=== PATIENT | female | born 1960 | race Caucasian/White ===

== ENCOUNTER 2018-06-08 13:54 | Observation (INO) | payer OTHER, SELFPAY ==
[2018-06-08] VITALS (11 sets, daily range): BP systolic 90–157; BP diastolic 50–68; PULSE 59–68; RESP 12–18; TEMP 36.4–36.5; O2SAT 98–100; BMI 26.6
--- NOTE | 2018-06-08 13:56 | DI.RAD.S_ITS ---
PROCEDURE: XR CHEST 1V INDICATIONS: chest pain TECHNIQUE: One view of the chest was acquired. COMPARISON: None. FINDINGS: Surgical changes and devices: None. Lungs and pleura: Lungs are clear. No pleural effusions or pneumothorax. Mediastinum: Mediastinal contours appear normal. Heart size is normal. Bones and chest wall: No suspicious bony lesions. Overlying soft tissues appear unremarkable. IMPRESSION: No acute pulmonary process. Dictated by: Deanna Salgado M.D. on 06/08/2018 at 14:13 Approved by: Deanna Salgado M.D. on 06/08/2018 at 14:13
[2018-06-08 14:12] LABS: Add Manual Diff / Slide Review NO; Basophils Absolute Auto 0 /uL (0-100); Basophils Percent Auto 0.6 % (0-2); Eosinophils Absolute Auto 100 /uL (0-450); Eosinophils Percent Auto 3.4 % (2-4); Hematocrit 36.8 % (36-46); Hemoglobin 12.9 g/dL (12.0-16.0); Lymphocytes Absolute Auto 1500 /uL (1100-4500); Lymphocytes Percent Auto 39.9 % (25-40); Mean Corpuscular HGB Conc 35.1 % (30-36); Mean Corpuscular Hemoglobin 32.2 PG (26-34); Mean Corpuscular Volume 91.7 fL (80-100); Monocytes Absolute Auto 200 /uL (0-900); Monocytes Percent Auto 5.8 % (3-14); Neutrophils Absolute Auto 1800 /uL (1500-7000); Neutrophils Percent Auto 50.3 % (50-75); Platelet Count 238 X10^3/uL (150-400); Red Blood Cell Count 4.01 X10^6/uL (4.0-5.2); Red Cell Distribution Width 13.1 % (11.6-14.8); White Blood Cell Count 3.7 X10^3/uL (4.5-11.0)
[2018-06-08] MEDS: SODIUM CHLORIDE 0.9% 1,000 ML 150 ML IV (14:26)
[2018-06-08 14:31] LABS: Alanine Aminotransferase 32 IU/L (9-52); Albumin 4.4 g/dL (3.5-5.0); Albumin Globulin Ratio 1.6 (1.0-2.8); Alkaline Phosphatase 67 U/L (38-126); Aspartate Aminotransferase 19 IU/L (14-36); BUN Creatinine Ratio 14.3 (6-22); Bilirubin Total 0.7 mg/dL (0.2-1.3); Blood Urea Nitrogen 10 mg/dL (7-17); Calcium 9.3 mg/dL (8.4-10.2); Carbon Dioxide 26 mmol/L (22-32); Chloride 104 mmol/L (98-107); Creatine Kinase 46 U/L (30-135); Estimated Glomerular Filt Rate > 60.0 mL/min (>60); Globulin 2.7 g/dL (1.7-4.1); Glucose 99 mg/dL (70-100); HEMOLYSIS < 15 (0-50); Lipase 55 U/L (23-300); Potassium 3.8 mmol/L (3.4-5.1); Sodium 139 mmol/L (137-145); Total Protein 7.1 g/dL (6.3-8.2)
[2018-06-08 14:41] LABS: Troponin I < 0.012 ng/mL (0.01-0.034)
--- NOTE | 2018-06-08 14:53 | ED.CHESTPAIN ---
HPI - Chest Pain General Chief Complaint: Chest Pain Stated Complaint: chest pain Time Seen by Provider: 06/08/18 13:56 Source: patient Mode of arrival: EMS Limitations: no limitations History of Present Illness HPI narrative: 57-year-old female, former smoker with history of hypertension and hyperlipidemia presents by EMS for evaluation of chest pressure that started just before arrival. She was driving her car when she felt anterior chest pressure that radiated to her back. It came with associated shortness of breath and some nausea. She pulled to the side of the road and called EMS. They administered nitroglycerin which improved her pain. She states that it is a 7 or 8 in intensity and describes it as pressure like. She denies any recent travel, history of clot or history of the same. She does admit to increasing fatigue with exertion over the past few weeks MD complaint: chest pain Onset (ago): minute(s) Duration: constant Onset: during rest Pain location: substernal Severity: moderate Quality: aching and heaviness Pain radiation: back Relieving factors: nitroglycerin Exacerbating factors: nothing Associated symptoms: nausea and dyspnea Treatments prior to arrival chest pain: aspirin and nitroglycerin Related Data On Oral Contraceptives: No Home Medications Medication Instructions Recorded Confirmed cyclobenzaprine 1 tab PO PRN PRN 06/08/18 06/08/18 ibuprofen 1 dose PO PRN PRN 06/08/18 06/08/18 levothyroxine [Synthroid] 50 mcg PO DAILY 06/08/18 06/08/18 rizatriptan 5 mg PO PRN PRN 06/08/18 06/08/18 Allergies Allergy/AdvReac Type Severity Reaction Status Date / Time nortriptyline Allergy Verified 06/08/18 14:40 Review of Systems Constitutional Denies chills, Denies fever(s), Denies lethargy and Denies weakness Eyes Denies change in vision, Denies eye discharge, Denies irritation and Denies loss of vision ENT Ears, Nose, Mouth, and Throat: Denies change in voice, Denies neck pain and Denies sore throat Cardiovascular Reports chest pain, Denies irregular heart rhythm, Denies lightheadedness, Denies palpitations, Denies dyspnea, Denies dyspnea on exertion and Denies orthopnea Respiratory Denies cough, Denies dyspnea, Denies dyspnea on exertion and Denies wheezing Gastrointestinal Gastrointestinal: Denies abdominal pain, Denies change in bowel habits, Denies diarrhea, Denies nausea and Denies vomiting Genitourinary Denies hematuria, Denies flank pain, Denies urinary incontinence and Denies urinary urgency Musculoskeletal Denies neck pain Integumentary/Breasts Denies pruritus, Denies erythema, Denies rash and Denies wounds Neurologic Denies confusion, Denies loss of vision and Denies weakness Psychiatric Denies anxiety, Denies confusion, Denies depression, Denies homicidal ideation and Denies suicidal ideation Endocrine Denies palpitations Hematologic/Lymphatic Denies easy bruising Allergic/Immunologic Denies wheezing PFSH Social History Smoking Status: Former smoker Social History Smoking Status: Former smoker Exam Narrative Exam Narrative: GENERAL: This is a well-nourished, well-developed patient, in mild distress. HEAD: Atraumatic. Normocephalic. No temporal or scalp tenderness. EYES: Pupils equal round and reactive. Extraocular motions intact. No scleral icterus. No injection or drainage. ENT: Nose without bleeding, purulent drainage or septal hematoma. Throat without erythema, tonsillar hypertrophy or exudate. Uvula midline. Airway patent. NECK: Trachea midline. No JVD or lymphadenopathy. Supple, nontender, no meningeal signs. CARDIOVASCULAR: Regular rate and rhythm without murmurs, gallops, or rubs. RESPIRATORY: Clear to auscultation. Breath sounds equal bilaterally. No wheezes, rales, or rhonchi. GASTROINTESTINAL: Abdomen soft, non-tender, nondistended. No hepato-splenomegaly, or palpable masses. No guarding. EXTREMITIES: No clubbing, cyanosis, or edema. No joint tenderness, effusion, or edema noted. BACK: Nontender without deformity or crepitance. No flank tenderness. NEURO: AOx3. SKIN: No rash or erythema. Initial Vital Signs Initial Vital Signs: Vital Signs Pulse Rate 63 06/08/18 14:00 Respiratory Rate 17 06/08/18 14:00 Blood Pressure 157/65 H 06/08/18 14:00 Pulse Oximetry 98 06/08/18 14:00 Scores HEART Score Heart Score history: Highly Suspicious Heart Score EKG: Normal Heart Score Age: 45-64 years old Heart Score risk factors: 1-2 risk factors Heart Score troponin: < or = to normal limit Heart Score Total: 4 Course Orders Ordered: ED Orders 06/08/18 13:56 XR chest 1V Stat EKG-12 Lead Stat 06/08/18 14:06 Complete Blood Count AUTO DIFF Stat Comprehensive Metabolic Panel Stat Lipase Stat Troponin & CK Cardiac Panel Stat 06/08/18 14:23 Urine Microscopic Stat 06/08/18 19:17 EKG-12 Lead Urgent 06/08/18 19:23 Troponin & CK Cardiac Panel Stat Sodium Chloride (Normal Saline 0.9%) 1,000 mls @ 150 mls/hr IV CONT MARISA Last Infusion: 06/08/18 16:22 Dose: 0 mls/hr Infusion: 06/08/18 15:30 Dose: 999 mls/hr Admin: 06/08/18 14:26 Dose: 150 mls/hr Nitroglycerin (Nitrostat) 0.4 mg SL [id number] PRN PRN Reason: Chest Pain Discontinued Medications Metoprolol Tartrate (Lopressor) 5 mg IV NOW ONE Stop: 06/08/18 13:57 Last Admin: 06/08/18 14:43 Dose: Not Given Morphine Sulfate (Morphine) 2 mg IV NOW ONE Stop: 06/08/18 19:19 Reevaluation(s) Reevaluation #1: Patient has complete resolution of symptoms after above-stated therapies. She did develop a mild headache and is treated with Tylenol Consultations Consultation #1: Upon receipt of 2nd EKG and 1st troponin I placed a call to Cardiology at [facility]. After discussion of history, physical and labs as well as EKG recommendation is to keep the patient here to perform a workup and that if any significant change were to occur they would be happy to accept the patient, they recommended admission here at [facility] Vital Signs - 8 hr 06/08/18 14:00 06/08/18 14:40 06/08/18 15:00 Temperature Pulse Rate 63 61 64 Respiratory Rate 17 15 12 Blood Pressure 157/65 H Blood Pressure [Right Arm] 98/61 90/56 L Pulse Oximetry 98 100 100 06/08/18 16:30 06/08/18 17:00 06/08/18 17:30 Temperature Pulse Rate 60 59 L 64 Respiratory Rate 18 17 18 Blood Pressure Blood Pressure [Right Arm] 100/50 L 102/59 L 100/65 Pulse Oximetry 100 98 100 06/08/18 17:45 02/05/19 18:40 Temperature 97.5 F L Pulse Rate 67 61 Respiratory Rate 18 Blood Pressure 114/67 104/61 Blood Pressure [Right Arm] Pulse Oximetry MDM - Chest Pain Medical Records Data Attestation: I reviewed the patient's medical records. Lab Data Attestation: I reviewed the patient's lab results. Result diagrams: 06/08/18 14:06 06/08/18 14:06 Lab Results 06/08/18 06/08/18 06/08/18 Range/Units 14:06 14:06 14:23 WBC 3.7 L (4.5-11.0) X10^3/uL RBC 4.01 (4.0-5.2) X10^6/uL Hgb 12.9 (12.0-16.0) g/dL Hct 36.8 (36-46) % MCV 91.7 (80-100) fL MCH 32.2 (26-34) PG MCHC 35.1 (30-36) % RDW 13.1 (11.6-14.8) % Plt Count 238 (150-400) X10^3/uL Neut % (Auto) 50.3 (50-75) % Lymph % (Auto) 39.9 (25-40) % [place] % (Auto) 5.8 (3-14) % Eos % (Auto) 3.4 (2-4) % Baso % (Auto) 0.6 (0-2) % Neut # (Auto) 1800 (2020-1215) /uL Lymph # (Auto) 1500 (4890-7694) /uL [place] # (Auto) 200 (0-900) /uL Eos # (Auto) 100 (0-450) /uL Baso # (Auto) 0 (0-100) /uL Sodium 139 (137-145) mmol/L Potassium 3.8 (3.4-5.1) mmol/L Chloride 104 (98-107) mmol/L Carbon Dioxide 26 (22-32) mmol/L BUN 10 (7-17) mg/dL Creatinine 0.70 (0.52-1.04) mg/dL Estimated GFR > 60.0 (>60) mL/min BUN/Creatinine Ratio 14.3 (6-22) Glucose 99 (70-100) mg/dL Calcium 9.3 (8.4-10.2) mg/dL Total Bilirubin 0.7 (0.2-1.3) mg/dL AST 19 (14-36) IU/L ALT 32 (9-52) IU/L Alkaline Phosphatase 67 (38-126) U/L Total Creatine Kinase 46 (30-135) U/L CK-MB (CK-2) TNP CK-MB (CK-2) Rel Index TNP Troponin I < 0.012 (0.01-0.034) ng/mL Total Protein 7.1 (6.3-8.2) g/dL Albumin 4.4 (3.5-5.0) g/dL Globulin 2.7 (1.7-4.1) g/dL Albumin/Globulin Ratio 1.6 (1.0-2.8) Lipase 55 (23-300) U/L Urine RBC 0-1/hpf (0-5/HPF) Urine WBC None seen (0-5/HPF) Urine Bacteria Occasional (0-1) (None) Ur Culture Indicated? Cult not indicated Urine Dip Bedside Urine Glucose Negative Bedside Urine Bilirubin - Negative Bedside Urine Ketone - Negative Urine Specific [place] 1.015 Bedside Urine Occult Blood +/- Bedside Urine pH 7.0 Bedside Urine Protein - Negative Bedside Urine Urobilinogen - Negative Bedside Urine Nitrite - Negative Bedside Urine Leukocytes - Negative Esterase Imaging Data Chest x-ray: Radiologist's impression: [address] [address] XRay Report Signed Patient: Mily Muniz [facility]#: [id number] : 1960cct:[id number] Age/Sex: 57 / FDate of Service: 06/08/18 Loc: ED Accession Number: [id number] Procedure: XR chest 1V Ordering Provider: Aubrey Gu D.O. PROCEDURE: XR CHEST 1V INDICATIONS: chest pain TECHNIQUE: One view of the chest was acquired. COMPARISON: None. FINDINGS: Surgical changes and devices: None. Lungs and pleura: Lungs are clear. No pleural effusions or pneumothorax. Mediastinum: Mediastinal contours appear normal. Heart size is normal. Bones and chest wall: No suspicious bony lesions. Overlying soft tissues appear unremarkable. IMPRESSION: No acute pulmonary process. Dictated by: Deanna Salgado M.D. on 06/08/2018 at 14:13 Approved by: Deanna Salgado M.D. on 06/08/2018 at 14:13 ECG Data Attestation: I personally reviewed and interpreted this ECG as follows: Prior ECG tracings: not available for review Interpretation: EKG is normal sinus rhythm rate [61 ] and free of any signs of ischemia or ectopy. No ST segmental elevation or depression. No T wave inversions EKG#2 unchanged Discharge Plan Departure Patient Disposition: Admitted as Observation Clinical Impression: Chest pain Discharge Date/Time: 06/08/18 18:02 Interventions: ED Discharge Assessment Last Done: 06/08/18 18:01 Admit Date/Time: 06/08/18 16:41 Admit Provider: Sravani Hannon
--- NOTE | 2018-06-08 14:56 | ED_ITS ---
HPI - Chest Pain General Chief Complaint: Chest Pain Stated Complaint: chest pain Time Seen by Provider: 06/08/18 13:56 Source: patient Mode of arrival: EMS Limitations: no limitations History of Present Illness HPI narrative: 57-year-old female, former smoker with history of hypertension and hyperlipidemia presents by EMS for evaluation of chest pressure that started just before arrival. She was driving her car when she felt anterior chest pressure that radiated to her back. It came with associated shortness of breath and some nausea. She pulled to the side of the road and called EMS. They administered nitroglycerin which improved her pain. She states that it is a 7 or 8 in intensity and describes it as pressure like. She denies any recent travel, history of clot or history of the same. She does admit to increasing fatigue with exertion over the past few weeks MD complaint: chest pain Onset (ago): minute(s) Duration: constant Onset: during rest Pain location: substernal Severity: moderate Quality: aching and heaviness Pain radiation: back Relieving factors: nitroglycerin Exacerbating factors: nothing Associated symptoms: nausea and dyspnea Treatments prior to arrival chest pain: aspirin and nitroglycerin Related Data On Oral Contraceptives: No Home Medications Medication Instructions Recorded Confirmed cyclobenzaprine 1 tab PO PRN PRN 06/08/18 06/08/18 ibuprofen 1 dose PO PRN PRN 06/08/18 06/08/18 levothyroxine [Synthroid] 50 mcg PO DAILY 06/08/18 06/08/18 rizatriptan 5 mg PO PRN PRN 06/08/18 06/08/18 Allergies Allergy/AdvReac Type Severity Reaction Status Date / Time nortriptyline Allergy Verified 06/08/18 14:40 Review of Systems Constitutional Denies chills, Denies fever(s), Denies lethargy and Denies weakness Eyes Denies change in vision, Denies eye discharge, Denies irritation and Denies loss of vision ENT Ears, Nose, Mouth, and Throat: Denies change in voice, Denies neck pain and Denies sore throat Cardiovascular Reports chest pain, Denies irregular heart rhythm, Denies lightheadedness, Denies palpitations, Denies dyspnea, Denies dyspnea on exertion and Denies orthopnea Respiratory Denies cough, Denies dyspnea, Denies dyspnea on exertion and Denies wheezing Gastrointestinal Gastrointestinal: Denies abdominal pain, Denies change in bowel habits, Denies diarrhea, Denies nausea and Denies vomiting Genitourinary Denies hematuria, Denies flank pain, Denies urinary incontinence and Denies urinary urgency Musculoskeletal Denies neck pain Integumentary/Breasts Denies pruritus, Denies erythema, Denies rash and Denies wounds Neurologic Denies confusion, Denies loss of vision and Denies weakness Psychiatric Denies anxiety, Denies confusion, Denies depression, Denies homicidal ideation and Denies suicidal ideation Endocrine Denies palpitations Hematologic/Lymphatic Denies easy bruising Allergic/Immunologic Denies wheezing PFSH Social History Smoking Status: Former smoker Social History Smoking Status: Former smoker Exam Narrative Exam Narrative: GENERAL: This is a well-nourished, well-developed patient, in mild distress. HEAD: Atraumatic. Normocephalic. No temporal or scalp tenderness. EYES: Pupils equal round and reactive. Extraocular motions intact. No scleral icterus. No injection or drainage. ENT: Nose without bleeding, purulent drainage or septal hematoma. Throat without erythema, tonsillar hypertrophy or exudate. Uvula midline. Airway patent. NECK: Trachea midline. No JVD or lymphadenopathy. Supple, nontender, no meningeal signs. CARDIOVASCULAR: Regular rate and rhythm without murmurs, gallops, or rubs. RESPIRATORY: Clear to auscultation. Breath sounds equal bilaterally. No wheezes , rales, or rhonchi. GASTROINTESTINAL: Abdomen soft, non-tender, nondistended. No hepato-splenomegaly , or palpable masses. No guarding. EXTREMITIES: No clubbing, cyanosis, or edema. No joint tenderness, effusion, or edema noted. BACK: Nontender without deformity or crepitance. No flank tenderness. NEURO: AOx3. SKIN: No rash or erythema. Initial Vital Signs Initial Vital Signs: Vital Signs Pulse Rate 63 06/08/18 14:00 Respiratory Rate 17 06/08/18 14:00 Blood Pressure 157/65 H 06/08/18 14:00 Pulse Oximetry 98 06/08/18 14:00 Scores HEART Score Heart Score history: Highly Suspicious Heart Score EKG: Normal Heart Score Age: 45-64 years old Heart Score risk factors: 1-2 risk factors Heart Score troponin: < or = to normal limit Heart Score Total: 4 Course Orders Ordered: ED Orders 06/08/18 13:56 XR chest 1V Stat EKG-12 Lead Stat 06/08/18 14:06 Complete Blood Count AUTO DIFF Stat Comprehensive Metabolic Panel Stat Lipase Stat Troponin & CK Cardiac Panel Stat 06/08/18 14:23 Urine Microscopic Stat 06/08/18 19:17 EKG-12 Lead Urgent 06/08/18 19:23 Troponin & CK Cardiac Panel Stat Sodium Chloride (Normal Saline 0.9%) 1,000 mls @ 150 mls/hr IV CONT MARISA Last Infusion: 06/08/18 16:22 Dose: 0 mls/hr Infusion: 06/08/18 15:30 Dose: 999 mls/hr Admin: 06/08/18 14:26 Dose: 150 mls/hr Nitroglycerin (Nitrostat) 0.4 mg SL [id number] PRN PRN Reason: Chest Pain Discontinued Medications Metoprolol Tartrate (Lopressor) 5 mg IV NOW ONE Stop: 06/08/18 13:57 Last Admin: 06/08/18 14:43 Dose: Not Given Morphine Sulfate (Morphine) 2 mg IV NOW ONE Stop: 06/08/18 19:19 Reevaluation(s) Reevaluation #1: Patient has complete resolution of symptoms after above-stated therapies. She did develop a mild headache and is treated with Tylenol Consultations Consultation #1: Upon receipt of 2nd EKG and 1st troponin I placed a call to Cardiology at [facility]. After discussion of history, physical and labs as well as EKG recommendation is to keep the patient here to perform a workup and that if any significant change were to occur they would be happy to accept the patient, they recommended admission here at [facility] Vital Signs - 8 hr 06/08/18 14:00 06/08/18 14:40 06/08/18 15:00 Temperature Pulse Rate 63 61 64 Respiratory Rate 17 15 12 Blood Pressure 157/65 H Blood Pressure [Right Arm] 98/61 90/56 L Pulse Oximetry 98 100 100 06/08/18 16:30 06/08/18 17:00 06/08/18 17:30 Temperature Pulse Rate 60 59 L 64 Respiratory Rate 18 17 18 Blood Pressure Blood Pressure [Right Arm] 100/50 L 102/59 L 100/65 Pulse Oximetry 100 98 100 06/08/18 17:45 02/05/19 18:40 Temperature 97.5 F L Pulse Rate 67 61 Respiratory Rate 18 Blood Pressure 114/67 104/61 Blood Pressure [Right Arm] Pulse Oximetry MDM - Chest Pain Medical Records Data Attestation: I reviewed the patient's medical records. Lab Data Attestation: I reviewed the patient's lab results. Result diagrams: 06/08/18 14:06 06/08/18 14:06 Lab Results 06/08/18 06/08/18 06/08/18 Range/Units 14:06 14:06 14:23 WBC 3.7 L (4.5-11.0) X10^3/uL RBC 4.01 (4.0-5.2) X10^6/uL Hgb 12.9 (12.0-16.0) g/dL Hct 36.8 (36-46) % MCV 91.7 (80-100) fL MCH 32.2 (26-34) PG MCHC 35.1 (30-36) % RDW 13.1 (11.6-14.8) % Plt Count 238 (150-400) X10^3/uL Neut % (Auto) 50.3 (50-75) % Lymph % (Auto) 39.9 (25-40) % [place] % (Auto) 5.8 (3-14) % Eos % (Auto) 3.4 (2-4) % Baso % (Auto) 0.6 (0-2) % Neut # (Auto) 1800 (8131-3737) /uL Lymph # (Auto) 1500 (8204-6113) /uL [place] # (Auto) 200 (0-900) /uL Eos # (Auto) 100 (0-450) /uL Baso # (Auto) 0 (0-100) /uL Sodium 139 (137-145) mmol/L Potassium 3.8 (3.4-5.1) mmol/L Chloride 104 (98-107) mmol/L Carbon Dioxide 26 (22-32) mmol/L BUN 10 (7-17) mg/dL Creatinine 0.70 (0.52-1.04) mg/dL Estimated GFR > 60.0 (>60) mL/min BUN/Creatinine Ratio 14.3 (6-22) Glucose 99 (70-100) mg/dL Calcium 9.3 (8.4-10.2) mg/dL Total Bilirubin 0.7 (0.2-1.3) mg/dL AST 19 (14-36) IU/L ALT 32 (9-52) IU/L Alkaline Phosphatase 67 (38-126) U/L Total Creatine Kinase 46 (30-135) U/L CK-MB (CK-2) TNP CK-MB (CK-2) Rel Index TNP Troponin I < 0.012 (0.01-0.034) ng/mL Total Protein 7.1 (6.3-8.2) g/dL Albumin 4.4 (3.5-5.0) g/dL Globulin 2.7 (1.7-4.1) g/dL Albumin/Globulin Ratio 1.6 (1.0-2.8) Lipase 55 (23-300) U/L Urine RBC 0-1/hpf (0-5/HPF) Urine WBC None seen (0-5/HPF) Urine Bacteria Occasional (0-1) (None) Ur Culture Indicated? Cult not indicated Urine Dip Bedside Urine Glucose Negative Bedside Urine Bilirubin - Negative Bedside Urine Ketone - Negative Urine Specific [place] 1.015 Bedside Urine Occult Blood +/- Bedside Urine pH 7.0 Bedside Urine Protein - Negative Bedside Urine Urobilinogen - Negative Bedside Urine Nitrite - Negative Bedside Urine Leukocytes - Negative Esterase Imaging Data Chest x-ray: Radiologist's impression: [address] [address] XRay Report Signed Patient: Mily Muniz [facility]#: [id number] : 1960cct:[id number] Age/Sex: 57 / FDate of Service: 06/08/18 Loc: ED Accession Number: [id number] Procedure: XR chest 1V Ordering Provider: Aubrey Gu D.O. PROCEDURE: XR CHEST 1V INDICATIONS: chest pain TECHNIQUE: One view of the chest was acquired. COMPARISON: None. FINDINGS: Surgical changes and devices: None. Lungs and pleura: Lungs are clear. No pleural effusions or pneumothorax. Mediastinum: Mediastinal contours appear normal. Heart size is normal. Bones and chest wall: No suspicious bony lesions. Overlying soft tissues appear unremarkable. IMPRESSION: No acute pulmonary process. Dictated by: Deanna Salgado M.D. on 06/08/2018 at 14:13 Approved by: Deanna Salgado M.D. on 06/08/2018 at 14:13 ECG Data Attestation: I personally reviewed and interpreted this ECG as follows: Prior ECG tracings: not available for review Interpretation: EKG is normal sinus rhythm rate [61 ] and free of any signs of ischemia or ectopy. No ST segmental elevation or depression. No T wave inversions EKG#2 unchanged Discharge Plan Departure Patient Disposition: Admitted as Observation Clinical Impression: Chest pain Discharge Date/Time: 06/08/18 18:02 Interventions: ED Discharge Assessment Last Done: 06/08/18 18:01 Admit Date/Time: 06/08/18 16:41 Admit Provider: Sravani Hannon
[2018-06-08 15:06] LABS: WBC Urine None Seen (0-5/HPF)
[2018-06-08 15:17] LABS: RBC Urine 0-1/HPF (0-5/HPF)
[2018-06-08 15:18] LABS: Bacteria Urine Occasional (0-1); Culture Indicated Urine Cult Not Indicated
--- NOTE | 2018-06-08 18:52 | PC.ADMIT ---
Admission Note: 1800 pt admitted to room 229 from ER oriented to and hospital. denies cp at this time tele in place sr 60 The patient,Mily Muniz,57 y/o, was given written information regarding hospital policies, unit procedures and contact persons. Patient's smoking status: Former smoker. Vital Signs - 8 hr 06/08/18 14:00 06/08/18 14:40 06/08/18 15:00 Temperature Pulse Rate 63 61 64 Respiratory Rate 17 15 12 Blood Pressure 157/65 H Blood Pressure [Right Arm] 98/61 90/56 L Pulse Oximetry 98 100 100 06/08/18 16:30 06/08/18 17:00 06/08/18 17:30 Temperature Pulse Rate 60 59 L 64 Respiratory Rate 18 17 18 Blood Pressure Blood Pressure [Right Arm] 100/50 L 102/59 L 100/65 Pulse Oximetry 100 98 100 06/08/18 17:45 Temperature 97.5 F L Pulse Rate 67 Respiratory Rate 18 Blood Pressure 114/67 Blood Pressure [Right Arm] Pulse Oximetry
[2018-06-08] MEDS: MORPHINE 2 MG/ML INJ IV (19:28)
--- NOTE | 2018-06-08 19:34 | PC.NURSE ---
185 pt c/o chest pain 3/10 with radiation to right shoulder denies sob. bp 100/[address] rate of 60. here to see pt. EKG done with SB58 medicated with 2mg morphine ivp, labs drawn. bp 106/69 cp now at a 1/10 to middle of chest and no radiation. pt shena well.
[2018-06-08 19:56] LABS: Creatine Kinase 41 U/L (30-135)
[2018-06-08 20:10] LABS: Troponin I < 0.012 ng/mL (0.01-0.034)
--- NOTE | 2018-06-08 21:45 | P.HP_ITS ---
History of Present Illness Date Patient Seen: 06/08/18 Time Patient Seen: 21:05 Chief complaint: chest pain Narrative: The patient is a 57-year-old female with PMH of hypothyroidism, migraine headaches, remote history of tobacco use (negligible). She does not have hypertension or hyperlipidemia (clarified w/ patient). Reports baseline borderline hypotension. Patient presented to the ED on 06/08/2018 for evaluation of acute chest pain. Onset of symptoms is sudden. Patient developed chest pain while driving to work, between 1230 and 1300. Chest discomfort is localized to mid-sternal aspect of the chest with radiation to the back (between shoulder blades) and bilateral jaw. At time of the event also experienced right shoulder discomfort and left hand / finger paresthesia a while en route to the ED. Discomfort in the form of pressure and heaviness. Chest pain rated 6-7/10 and back pain 7- 8/10. Back pain was self-resolved in less than 1 min. Chest pain and jaw pain persisted until patient presented to the ED and was given a dose of nitro. Chest discomfort subsided to2-3/10 after the dose of nitro. She did exhibit a BP drop with nitroglycerin. Associated symptoms included lightheadedness, diaphoresis, dyspnea, and generalized weakness. Patient also notes that she has been tired for the past 2-3 months; however, profoundly more fatigued over the past month. No recent illness. One week ago finished ?Whole 30 Diet.? No fever chills, change in vision, cough, pleurisy, hemoptysis, syncopal events, palpitations, peripheral edema, PND, claudication, dyspepsia, abdominal pain, nausea, vomiting, myalgia, myopathy, or blood in urine/stool. No known GI disorders. However, this morning developed nausea while eating breakfast (scrambled eggs and bagel) and acute repulsion to the meal. Denies similar events in the past. No prior history of PE or DVT. No history of malignancy. Patient does not smoke. Drinks on rare occasions. No history of DM, HTN, dyslipidemia or obesity. Risk factors include: FHx (heart disease, sister, and menopause). PMH: Hypothyroidism, migraine headaches, remote tobacco use (1/2 ppd x1 yr, while in HS). PSH: No known surgical history FHx: Mother (alive) - alcohol abuse, liver disease Father (alive) - pre diabetes Sister (alive) - obesity, heart disease; in addition, has 2 more brothers and 1 sister, all alive and w/o known health problems. Daughter (alive) - rheumatoid arthritis SHx: Currently nonsmoker. Negligible remote history of tobacco use. Patient drinks on occasion, red wine, 2 drinks monthly. No history of current or prior recreational drug use; however, she does admit to trying cannabis 2 months ago. Patient is , lives with her . 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 No functional deficits. Patient History Social History Smoking Status: Former smoker Family & Social History Social History: household members spouse Safety & Behavioral: Feels Safe in Current Yes Environment Been Physically Hurt or No Threatened By a Person Suicidal Ideation Description None Tobacco & Substance use: Smoking Status Former smoker alcohol intake frequency holiday/special occasion Substance Use Type does not use Meds Home Medications Medication Instructions Recorded Confirmed Type cyclobenzaprine 1 tab PO PRN PRN 06/08/18 06/08/18 History ibuprofen 1 dose PO PRN PRN 06/08/18 06/08/18 History levothyroxine [Synthroid] 50 mcg PO DAILY 06/08/18 06/08/18 History rizatriptan 5 mg PO PRN PRN 06/08/18 06/08/18 History Allergies Allergy/AdvReac Type Severity Reaction Status Date / Time nortriptyline Allergy Verified 06/08/18 14:40 Review of Systems Review of Systems All systems reviewed & are unremarkable except as noted in HPI and below Exam Vital Signs (past 8 hours): - 06/08/18 14:00 06/08/18 14:40 06/08/18 15:00 Temperature Pulse Rate 63 61 64 Respiratory Rate 17 15 12 Blood Pressure 157/65 H Blood Pressure [Right Arm] 98/61 90/56 L Pulse Oximetry 98 100 100 06/08/18 16:30 06/08/18 17:00 06/08/18 17:30 Temperature Pulse Rate 60 59 L 64 Respiratory Rate 18 17 18 Blood Pressure Blood Pressure [Right Arm] 100/50 L 102/59 L 100/65 Pulse Oximetry 100 98 100 06/08/18 17:45 06/08/18 18:40 06/08/18 20:00 Temperature 97.5 F L 97.7 F Pulse Rate 67 61 68 Respiratory Rate 18 16 Blood Pressure 114/67 104/61 128/68 Blood Pressure [Right Arm] Pulse Oximetry 06/08/18 20:52 Temperature Pulse Rate Respiratory Rate Blood Pressure Blood Pressure [Right Arm] Pulse Oximetry 100 Oxygen Delivery Method Room Air Narrative Exam Narrative: Constitutional: NAD Neurologic: AOx3, no focal neurological deficits Head: NC, AT Eyes: PERRL, EOMI, Ears: external ears normal Nose: external nose normal, no rhinorrhea or epistaxis Throat: DRY MM, oropharynx w/o exudate Neck: no masses, lymphadenopathy, or JVD Chest / Respiratory: equal chest rise, unlabored respiratory effort, no tachypnea or dyspnea CTAB, no reproducible chest discomfort Heart / CV: S1S2, occasional ectopic beats, no murmur; bradycardia on environmental monitoring specialist Abdomen / GI: round, NT, ND, + BS, no organomegaly : no suprapubic tenderness, no CVA Peripheral / Vascular: warm to touch, DP and PT pulses palpable, no edema Musc: full ROM of upper and lower extremities, adequate muscle tone and bulk Skin: no ecchymosis or suspicious lesions / ulcers Objective Labs Result Diagrams: 06/08/18 14:06 06/08/18 22:55 Labs: Laboratory Results - last 24 hr 06/08/18 06/08/18 06/08/18 14:06 14:06 14:23 WBC 3.7 L RBC 4.01 Hgb 12.9 Hct 36.8 MCV 91.7 MCH 32.2 MCHC 35.1 RDW 13.1 Plt Count 238 Neut % (Auto) 50.3 Lymph % (Auto) 39.9 [place] % (Auto) 5.8 Eos % (Auto) 3.4 Baso % (Auto) 0.6 Neut # (Auto) 1800 Lymph # (Auto) 1500 [place] # (Auto) 200 Eos # (Auto) 100 Baso # (Auto) 0 Sodium 139 Potassium 3.8 Chloride 104 Carbon Dioxide 26 BUN 10 Creatinine 0.70 Estimated GFR > 60.0 BUN/Creatinine Ratio 14.3 Glucose 99 Calcium 9.3 Total Bilirubin 0.7 AST 19 ALT 32 Alkaline Phosphatase 67 Total Creatine Kinase 46 CK-MB (CK-2) TNP CK-MB (CK-2) Rel Index TNP Troponin I < 0.012 Total Protein 7.1 Albumin 4.4 Globulin 2.7 Albumin/Globulin Ratio 1.6 Lipase 55 Urine RBC 0-1/hpf Urine WBC None seen Urine Bacteria Occasional (0-1) Ur Culture Indicated? Cult not indicated 06/08/18 19:20 WBC RBC Hgb Hct MCV MCH MCHC RDW Plt Count Neut % (Auto) Lymph % (Auto) [place] % (Auto) Eos % (Auto) Baso % (Auto) Neut # (Auto) Lymph # (Auto) [place] # (Auto) Eos # (Auto) Baso # (Auto) Sodium Potassium Chloride Carbon Dioxide BUN Creatinine Estimated GFR BUN/Creatinine Ratio Glucose Calcium Total Bilirubin AST ALT Alkaline Phosphatase Total Creatine Kinase 41 CK-MB (CK-2) TNP CK-MB (CK-2) Rel Index TNP Troponin I < 0.012 Total Protein Albumin Globulin Albumin/Globulin Ratio Lipase Urine RBC Urine WBC Urine Bacteria Ur Culture Indicated? Assessment & Plan (1) Chest pain: Problem details: Acute chest pain, present on admission DDx: unstable angina, coronary ischemia / spasm, AMI, esophageal spasm Troponins negative x2 EKG SR to SB (v-rate 56-61). No overt signs of ischemia. No overt S-T abnormalities. CXR w/o acute cardiopulmonary process. Received 324 ASA while en route to ED Responded to a dose of nitro in ED Qualifiers: Chest pain type: unspecified Ischemic chest pain type: Qualified Code(s): R07.9 - Chest pain, unspecified Current visit: Yes Status: Acute (2) Bradycardia, sinus: Problem details: Heart rate mid 50s to low 60s per telemetry monitoring. Asymptomatic. Not on BB or CCB. Consider chest pain in the setting of sanford-arrhythmia. Current visit: Yes Status: Acute (3) Headache, migraine: Problem details: History of migraine headaches. Currently headache free. Controlled chronic condition. PUBLIC HE[facility] on [place] as needed. Current visit: Yes Status: Chronic (4) Primary hypothyroidism: Problem details: Stable chronic condition Current visit: Yes Status: Chronic Plan: Assessment/Plan Narrative: Acute Chest Pain -Telemetry monitoring -Nitropaste 0.5 in q.6 hours -Received ASA 324 an ambulance, start ASA 81 mg q.d. -IVF -Supplemental O2, keep SpO2 > 94% -NPO -Stress Test and Echo in am -Risk stratify: A1C, FLP, TSH -Additional labs Mg, D-Dimer -Correct e-lyte abnormalities, goal k > 4 and goal Mg > 2 Bradycardia, asymptomatic - Telemetry monitoring Headache, migraine - Fioricet and Imitrex prn Primary hypothyroidism -TSH level pending -Resume PT a dose/regimen of levothyroxine Quality VTE Deep Vein Thrombosis/Pulmonary Embolism Present on Admission: No
[2018-06-08 23:13] LABS: D Dimer < 200 ng/mL (<230)
[2018-06-08 23:14] LABS: HEMOLYSIS < 15 (0-50); Hemoglobin A1C% w Est Avg Glu 5.1 % (4.0-6.0); Magnesium 1.9 mg/dL (1.6-2.3); Potassium 3.5 mmol/L (3.4-5.1)
[2018-06-08 23:34] LABS: Troponin I < 0.012 ng/mL (0.01-0.034)
[2018-06-08] MEDS: NITROGLYCERIN OINT 1 INCH/GM OINT...G. 0.5 INCH TOP (23:41)
[2018-06-08] MEDS: DEXTROSE 5%-0.45% NS 1,000 ML 84 ML IV (23:46)
[2018-06-09] VITALS (9 sets, daily range): BP systolic 85–105; BP diastolic 51–66; PULSE 56–70; RESP 16–20; TEMP 36.4–37; O2SAT 93–98
--- NOTE | 2018-06-09 | DI.NM.S_ITS ---
PROCEDURE: NM SENAIT PERF SPECT STR only (no rest images) Rest and exercise myocardial perfusion SPECT with gated imaging and ejection fraction RADIOPHARMACEUTICAL: 24.3 mCi Tc-99m sestamibi IV at peak exercise. No rest images done. INDICATIONS: chest pain TECHNIQUE: Radiopharmaceutical was injected at peak stress test, and also at rest. SPECT images were obtained. SPECT myocardial perfusion images were displayed in short axis, horizontal long axis, and vertical long axis views. Gated images were reviewed using [employer] software. COMPARISON: None. CARDIAC STRESS: A standard Piter treadmill exercise tolerance test was performed by the patient under the supervision of an attending staff. The patient exercised for 7 minutes and 50 seconds 10.1 METs; functional aerobic impairment (TERE) is -25%. Hemodynamic data: There is normal blood pressure and heart rate response to exercise stress. Patient achieved 104% of maximum predicted heart rate at peak exercise. Symptoms: Patient denied chest pain during exercise. EKG: Sinus rhythm no ST-T changes at rest. No diagnostic EKG changes of ischemia with exercise; no ectopy. FINDINGS: Raw data: There is good myocardial labeling by radiotracer. No significant motion artifacts. Rydd-wx-fsoeq ratio is 0.36 (normal is less than 0.38 for sestamibi tracer, and less than 0.50 for thallium tracer). Left ventricle function: Gated images demonstrate normal left ventricle wall thickening. No segmental wall motion abnormality. The left ventricle post-stress end-diastolic volume is 86 mL. Left ventricle stress ejection fraction is 76%; normal values are above 45%. Myocardial perfusion: There is normal distribution of activity in the left and right ventricular myocardium. No fixed or reversible perfusion defects. IMPRESSION: Low risk, normal treadmill nuclear stress test. 1) No perfusion evidence of ischemia or infarction. 2) Normal left ventricualr size, wall motion, and systolic function (post stress EF 76%). 3) No ECG evidence of ischemia. 4) No angina during the study. 5) Good exercise tolerance (10.1 METs, TERE -25%). Target heart rate achieved. Appropriate hemodynamic response to exercise. 6) No prior nuclear stress test available for comparison. Dictated by: Ole Larios MD on 06/09/2018 at 12:59 Approved by: Ole Larios MD on 06/09/2018 at 13:05
[2018-06-09 00:01] LABS: Thyroid Stimulating Hormone 3.68 uIU/mL (0.47-4.68)
--- NOTE | 2018-06-09 00:28 | PC.NURSE ---
2330 Pt awake. Pt denies chest pain and nausea at this time. Pt encouraged to call RN for any chest pain, pressure or nausea. Pt also instructed to call staff for assistance to bathroom. Nitro paste applied and IVF initiated per orders.
--- NOTE | 2018-06-09 02:17 | PC.NURSE ---
Addendum entered by Esthela Martinez R.N. 06/09/18 03:19: 0320 Pt called RN in for beepin equipment and states that chest pain is now 1/10 and she is feeling much better. Original Note: Addendum entered by Esthela Martinez R.N. 06/09/18 03:10: [id number] CrystalAndrea Larissa notified of patient's complaint of chest pain mid chest to between shoulder blades. Pt states more painful with deep inspiration. Pt continues to deny nausea, but states has a low grade headache. Pt declining Morphine and Imatrex. Pt agreeable to take now dose of potassium and Magnesium rider. Encouraged patient to call RN if she changed her mind and wanted either medication for chest pain or headache. Also encouraged to call if chest pain increased or had nausea. Pt agreeable. O2 sats remain 95-96% on room air. SBP 94-96. Original Note: 0215 Pt called to state that she is experiencing chest pain 3/10. Rt called for EKG. BP 99/53. SR Rate 60. Pt denies naussea and headache.
[2018-06-09 02:33] LABS: Troponin I < 0.012 ng/mL (0.01-0.034)
[2018-06-09] MEDS: POTASSIUM CHLORIDE 20 MEQ/15 ML UDC 40 MEQ PO (02:55)
[2018-06-09] MEDS: MAGNESIUM SULFATE 2 GM/50 ML PIGGYBACK IV (02:56)
[2018-06-09 07:00] LABS: Cholesterol 130 mg/dL (140-199); HDL Cholesterol 47 mg/dL (40-60); LDL Cholesterol Calculated 68 mg/dL (<100); Triglycerides 77 mg/dL (35-150)
[2018-06-09] MEDS: LEVOTHYROXINE 50 MCG TABLET PO (09:08)
[2018-06-09] MEDS: ASPIRIN 81 MG TAB PO (09:08)
[2018-06-09] MEDS: BUTALB/APAP/CAFFEINE 50/325/40 TABLET 1 EACH PO ×2 (09:14→15:33)
--- NOTE | 2018-06-09 10:30 | CM.DANOTE ---
DCP: Case received, EMR reviewed and met with patient. Introduced self and role. DCP template completed with information currently available. Patient is a 57 year old female who admitted yesterday afternoon to the care of the hospitalist team. PCP: Dr. Mcfadden at [facility]. Payer: confirmed: [employer]. Patient came to hospital via ambulance due to chest pain. Stated that she had originally been driving her car, when she developed severe chest pain, and called EMS. Stated that she had taken nitro with limited relief. She has history of hypothyroidism, headaches. Patient alert and oriented, lives in [place] with her spouse. Had enzymes, Troponin, which were negative, but will possibly have a stress test today. P: DCP to follow closely. Patient should be able to go home when she is medically stable. May need to follow up with a internet merchant, depending on results of stress test. Kathrine Kolb RN/It Help Desk Associate
--- NOTE | 2018-06-09 11:50 | PM.TREADMILL ---
Cardiac Stress Test Report Referral & Results Date Patient Seen: 06/09/18 Time Patient Seen: 11:50 Requesting provider: Yelena Wilkes Indication: Chest pain, current inpatient Rest ECG: Unremarkable Procedure Note: Today following both written and verbal informed consent the patient was exercised according to a standard Piter protocol patient went for a total of 7 min 50 sec achieving a maximum heart rate of 170 maximum systolic blood pressure of 152. This is approximately 10.1 METS. Exercise was terminated at this point because of targets were met, and patient was unable to continue because of fatigue. Patient was also given Cardiolite through a previously started Hep-Lock IV by the nuclear medicine pet ct technologist approximately 1 minute prior to the cessation of exercise. There are nonspecific ST-T segment changes mild drooping that was upsloping not present in every beat to beat in the inferior and lateral leads with exercise that almost immediately resolved with cessation of activity thus suggesting nonischemic Normal heart rate and blood pressure response Functional aerobic impairment rated-25% on the sedentary scale or 25% better than average No dysrhythmias Impression: ST segment changes very nonspecific and unlikely to be ischemic Excellent exercise capacity Perfusion imaging be reported separately Please note: Actual ECG tracings can be found in the PACS system.
--- NOTE | 2018-06-09 15:06 | P.DS_ITS ---
History of Present Illness Date Patient Seen: 06/08/18 Chief complaint: chest pain Narrative: Written by Yelena Wilkes PA-C: The patient is a 57-year-old female with PMH of hypothyroidism, migraine headaches, remote history of tobacco use (negligible). She does not have hypertension or hyperlipidemia (clarified w/ patient). Reports baseline borderline hypotension. Patient presented to the ED on 06/08/2018 for evaluation of acute chest pain. Onset of symptoms is sudden. Patient developed chest pain while driving to work, between 1230 and 1300. Chest discomfort is localized to mid-sternal aspect of the chest with radiation to the back (between shoulder blades) and bilateral jaw. At time of the event also experienced right shoulder discomfort and left hand / finger paresthesia a while en route to the ED. Discomfort in the form of pressure and heaviness. Chest pain rated 6-7/10 and back pain 7- 8/10. Back pain was self-resolved in less than 1 min. Chest pain and jaw pain persisted until patient presented to the ED and was given a dose of nitro. Chest discomfort subsided to2-3/10 after the dose of nitro. She did exhibit a BP drop with nitroglycerin. Associated symptoms included lightheadedness, diaphoresis, dyspnea, and generalized weakness. Patient also notes that she has been tired for the past 2-3 months; however, profoundly more fatigued over the past month. No recent illness. One week ago finished ?Whole 30 Diet.? No fever chills, change in vision, cough, pleurisy, hemoptysis, syncopal events, palpitations, peripheral edema, PND, claudication, dyspepsia, abdominal pain, nausea, vomiting, myalgia, myopathy, or blood in urine/stool. No known GI disorders. However, this morning developed nausea while eating kady kfast (scrambled eggs and bagel) and acute repulsion to the meal. Denies similar events in the past. No prior history of PE or DVT. No history of malignancy. Patient does not smoke. Drinks on rare occasions. No history of DM, HTN, dyslipidemia or obesity. Risk factors include: FHx (heart disease, sister, and menopause). Discharge Providers Date of admission: 06/08/18 16:41 Primary care physician: Divina Cruz Discharge provider: Sravani Hannon DO Discharge Date: 06/09/18 Summary Discharge Diagnosis: 1. Acute non-ischemic chest pain, present on admission. Resolved. 2. Bradycardia, asymptomatic, acuity unknown, present on admission. 3. Migraine headaches, not present on admission. Stable. 4. Primary hypothyroidism, present on admission. Stable. Hospital Course: 1. Acute non-ischemic chest pain, present on admission. Resolved. -Patient presented with abrupt onset substernal chest pain at rest, radiating to right shoulder with associated diaphoresis and sob, relieved with nitroglycerin. -DDx: Pectoris angina vs esophageal spasm vs musculoskeletal. -Serial troponins x 3 negative. -EKG SR to SB (v-rate 56-61). No overt signs of ischemia. No overt S-T abnormalities. -CXR did not demonstrate any acute cardiopulmonary process. -Continued to monitor on telemetry closely. -Nitropaste 0.5 in q.6 hours. -Received ASA 324 an ambulance, start ASA 81 mg q.d. -IVF -Supplemental O2, keep SpO2 > 92%. -Risk stratify: A1C, FLP, TSH all wnl and non contributory. -Corrected electrolyte abnormalities, goal k > 4 and goal Mg > 2. -NM stress test normal and no ischemic perfusion defects visualized. 2. Bradycardia, asymptomatic, acuity unknown, present on admission. -Heart rate mid 50s to low 60s per telemetry monitoring. Asymptomatic. Not on BB or CCB. Consider chest pain in the setting of sanford-arrhythmia. -Continued to monitor closely on telemetry. 3. Migraine headaches, not present on admission. Stable. -Continued to be headache free. -Continued Fioricet and Imitrex as needed. 4. Primary hypothyroidism, present on admission. Stable. -TSH level normal at 3.68. -Continued home levothyroxine. Status at Discharge Functional status at discharge: independent ambulation Exam Vital Signs (past 8 hours): - 06/09/18 08:00 06/09/18 11:55 06/09/18 13:49 Temperature 98.3 F 98.6 F Pulse Rate 64 70 Respiratory Rate 18 20 Blood Pressure 87/51 L 97/64 Pulse Oximetry 97 96 98 Oxygen Delivery Method Room Air Oxygen Flow Rate 0 Narrative Exam Narrative: General: Middle aged woman standing at bathroom sink, in no acute distress, well-developed, well-nourished, appropriately interactive. HEENT: Normocephalic, atraumatic. External ears without defect. Pupils equal, round, and reactive to light and accommodation. Anicteric sclerae, moist conjunctivae, and no lid lag. Neck: Supple with full range of motion. No lymphadenopathy or thyromegaly. Cardiovascular: Regular rate and rhythm with no murmurs, rubs, or gallops appreciated Pulmonary: Clear to auscultation bilaterally with no crackles, wheezes, or rhonchi. Normal respiratory effort with no use of accessory muscles. Abdomen: Soft, bowel sounds present, nontender, nondistended. No hepatosplenomegaly or masses appreciated. Extremities: No clubbing, cyanosis, or edema. Skin: Normal temperature, turgor, and texture; no rash, ulcers, or subcutaneous nodules appreciated. Neurological: Cranial nerves grossly intact. Normal muscle strength, tone, and bulk. Reflexes, coordination, and sensory function within normal limits. No known gait impairment. Psychiatric: Normal mood and affect. Alert and oriented to person, place, and time. Objective Labs Result Diagrams: 06/08/18 14:06 06/08/18 22:55 Labs: Laboratory Results - last 24 hr 06/08/18 06/08/18 06/08/18 14:23 19:20 22:55 D-Dimer Potassium Hemoglobin A1c Magnesium Total Creatine Kinase 41 CK-MB (CK-2) TNP CK-MB (CK-2) Rel Index TNP Troponin I < 0.012 < 0.012 Triglycerides Cholesterol LDL Cholesterol, Calc HDL Cholesterol TSH Urine RBC 0-1/hpf Urine WBC None seen Urine Bacteria Occasional (0-1) Ur Culture Indicated? Cult not indicated 06/08/18 06/08/18 06/08/18 22:55 22:55 22:55 D-Dimer < 200 Potassium Hemoglobin A1c 5.1 Magnesium Total Creatine Kinase CK-MB (CK-2) CK-MB (CK-2) Rel Index Troponin I Triglycerides Cholesterol LDL Cholesterol, Calc HDL Cholesterol TSH 3.68 Urine RBC Urine WBC Urine Bacteria Ur Culture Indicated? 06/08/18 06/09/18 06/09/18 22:55 01:58 05:42 D-Dimer Potassium 3.5 Hemoglobin A1c Magnesium 1.9 Total Creatine Kinase CK-MB (CK-2) CK-MB (CK-2) Rel Index Troponin I < 0.012 Triglycerides 77 Cholesterol 130 L LDL Cholesterol, Calc 68 HDL Cholesterol 47 TSH Urine RBC Urine WBC Urine Bacteria Ur Culture Indicated? Discharge Plan Discharge Plan Patient Disposition: Home Discharge comment: You are being discharged home. Please follow-up with your [facility] [employer] regarding your hospitalization. Your nuclear medicine stress test was normal and did not show signs of heart attack or demonstrate any findings suggesting impending heart attack. Please continue moderate physical activity per AHA guidelines 150 min per week. Continue a heart healthy diet. Your chest pressure/pain may represent pectoris angina whic h is benign, esophageal spasm, or musculoskeletal. Discharge Med Rec/Prescriptions Prescriptions: Continued levothyroxine 50 mcg tablet 50 mcg PO DAILY RF: 0 ibuprofen 200 mg Tablet 1 dose PO PRN PRN (Reason: pain) RF: 0 rizatriptan 5 mg tablet 5 mg PO PRN PRN (Reason: Migraine Headache) RF: 0 cyclobenzaprine 1 tab PO PRN PRN (Reason: Spasms) RF: 0 Follow up/Referrals: Divina Cruz [Primary Care Provider] - 2 Weeks Provider Discharge Instructions Diet: Diet as Tolerated, Low-fat, Low-sodium and Low-cholesterol Activity: Activity as tolerated and as above Visit Report/Discharge Packet Instructions: The Mediterranean Diet and Good Health, DI for Angina Visit Report Forms: Stroke Signs & Symptoms Discharge Data Primary Care Provider: Divina Cruz Attending Provider: Sravani Hannon Admit Date/Time: 06/08/18 16:41 Discharges patient from system. Discharge Date/Time: 06/09/18 16:32 Quality VTE Deep Vein Thrombosis/Pulmonary Embolism Present on Admission: No
--- NOTE | 2018-06-09 16:29 | PC.NURSE ---
1628 - Patient discharged home per orders. Alert and oriented. States full understanding of all medications and instructions. Discharge packet given to patient and gone over with patient in detail. Denies any questions. Ambulated out of building with nursing staff in good condition.
== END 2018-06-09 16:32 | disposition home or self-care (01) ==
LOC: ED 16:17 → AC 16:47
PROVIDERS: Nurse Practitioner Gerontology; Admitting Provider Internal Medicine; Emergency Provider Emergency Medicine; PCP Nurse Practitioner Family; Visit Provider Internal Medicine
DX: R07.9 Chest pain, unspecified (principal); G43.909 Migraine, unspecified, not intractable, without status migrainosus; R00.1 Bradycardia, unspecified; E03.9 Hypothyroidism, unspecified; Z87.891 Personal history of nicotine dependence; I10 Essential (primary) hypertension; E78.5 Hyperlipidemia, unspecified
CPT/HCPCS: 36415; 71045; 78451; 80053; 80061; 81003; 81015; 82550; 83036; 83690; 83735; 84132; 84443; 84484; 85025; 85379; 93005; 93016; 93017; 93018; 94762; 96360; 96361; 99285; G0378; A9502; J2270

== ENCOUNTER → 2021-10-11 10:24 | Outpatient (CLI) | payer OTHER, SELFPAY ==
[2018-06-08 20:22] VITALS: BMI 26.6
[2021-10-11 11:19] LABS: COVID19 -Nasal RAPID Negative (Negative)
== END ==
PROVIDERS: PCP Nurse Practitioner Family; Referring Provider Internal Medicine; Visit Provider Internal Medicine
DX: Z20.822 Contact with and (suspected) exposure to COVID-19 (principal)
CPT/HCPCS: 87635; C9803

== ENCOUNTER → 2021-10-11 14:58 | Outpatient (CLI) | payer OTHER, SELFPAY ==
[2018-06-08 20:22] VITALS: BMI 26.6
--- NOTE | 2021-10-16 09:14 | PM.PFT.1 ---
Pulmonary Function Test Referral & Results Date Patient Seen: 10/11/21 Requesting provider: Arley Olsen Results: The spirometry demonstrates an FVC of 3.44 L which is 92% of predicted. The FEV1 was measured at 2.55 L which is 88% of predicted. The FEV1/FVC ratio was 74 which is 95% of predicted. Following the administration of bronchodilator there was no notable change. Interpretation: This study demonstrates normal forced spirometry without evidence of any significant change after bronchodilator administration
== END ==
PROVIDERS: PCP Nurse Practitioner Family; Referring Provider Family Medicine; Visit Provider Family Medicine
DX: R06.09 Other forms of dyspnea (principal); J98.8 Other specified respiratory disorders; Z20.822 Contact with and (suspected) exposure to COVID-19
CPT/HCPCS: 87635; 94060; C9803